=== PATIENT | female | born 1990 | race Caucasian/White ===

== ENCOUNTER 2020-12-18 03:36 | Emergency (ER) | payer SELFPAY ==
[2020-12-18 03:43] VITALS: TEMP 97.8; BMI 24.1
[2020-12-18 06:25] VITALS: BP 121/61; PULSE 85
== END 2020-12-18 06:27 | disposition home or self-care (01) ==
LOC: JER 03:36
DX: S00.83XA Contusion of other part of head, initial encounter (principal)
CPT/HCPCS: 70450-TC; 70486-TC; 72125-TC; 99285-25

== ENCOUNTER 2022-09-13 23:45 | Inpatient (IN) | payer OTHER ==
[2022-09-14] MEDS ORDERED: OXYTOCIN 30 UNITS in 0.9% NS 30 UNIT/500 ML INFUS.BAG IVPB ONE (00:44)
[2022-09-14] MEDS ORDERED: ONDANSETRON 4 MG/2 ML VIAL ONE (00:47)
[2022-09-14] MEDS ORDERED: DEXAMETHASONE SOD PHOSPHATE 4 MG/1 ML VIAL ONE (00:47)
[2022-09-14] MEDS ORDERED: FENTANYL CITRATE/PF 50 MCG/ML VIAL ONE (00:47)
[2022-09-14] MEDS ORDERED: ceFAZolin SODIUM 1 GM VIAL ONE (00:47)
[2022-09-14] MEDS ORDERED: morphine SULFATE/PF 1 MG/2 ML (2cc Syringe - QUVA) ONE (00:47)
[2022-09-14] MEDS ORDERED: ePHEDrine SULFATE 50 MG/1 ML AMPULE ONE (00:48)
[2022-09-14] MEDS ORDERED: SUCCINYLCHOLINE CHLORIDE 200 MG/10 ML SYRINGE ONE (00:48)
[2022-09-14] MEDS ORDERED: PROPOFOL 20 ML ONE (00:48)
[2022-09-14] MEDS ORDERED: AMPICILLIN - 2 GM in SODIUM CHLORIDE 100 ML IVPB ONE (00:49)
[2022-09-14] MEDS: ELECTROLYTE-148 SOLN 1,000 ML IV SCH (01:00)
[2022-09-14] MEDS ORDERED: CITRIC ACID/SODIUM CITRATE 30 ML UNIT-DOSE CUP PO ONE (01:00)
[2022-09-14 01:27] VITALS: BMI 27.4
[2022-09-14] MEDS ORDERED: OXYTOCIN 10 UNITS/ML VIAL ONE ×3 (01:53)
[2022-09-14] MEDS ORDERED: METHYLERGONOVINE MALEATE 0.2 MG/1 ML AMP IM PRN (02:03)
[2022-09-14] MEDS ORDERED: OXYTOCIN 20 UNITS in 0.9% NS 20 UNIT/1,000 ML INFUS.BAG IV SCH (02:15)
[2022-09-14] MEDS ORDERED: ACETAMINOPHEN 325 MG TABLET (FP) PO PRN (02:31)
[2022-09-14] MEDS ORDERED: IBUPROFEN 600 MG TABLET (FP) PO PRN (02:31)
[2022-09-14] MEDS ORDERED: ONDANSETRON 4 MG/2 ML VIAL IVPUSH PRN (02:31)
[2022-09-14] MEDS ORDERED: OXYTOCIN 20 UNITS in 0.9% NS 20 UNIT/1,000 ML INFUS.BAG IV ONE (03:20)
[2022-09-14] MEDS ORDERED: AMPICILLIN - 1 GM in SODIUM CHLORIDE 100 ML IVPB SCH ×2 (05:00→09:45)
[2022-09-14] MEDS: SIMETHICONE 80 MG TAB.CHEW (FP) PO PRN ×2 (06:40→20:10)
[2022-09-14] MEDS: ACETAMINOPHEN 1000 MG/100 ML BAG IVPB SCH ×3 (07:25→20:10)
[2022-09-14] MEDS: IBUPROFEN 800 MG/8 ML IJ IVPB SCH ×2 (09:29→17:08)
[2022-09-14] MEDS ORDERED: oxyCODONE HCL 5 MG TABLET PO PRN (14:03)
[2022-09-15] MEDS: IBUPROFEN 800 MG/8 ML IJ IVPB SCH ×2 (01:06→11:07)
[2022-09-15] MEDS: SIMETHICONE 80 MG TAB.CHEW (FP) PO PRN ×2 (01:08→19:49)
[2022-09-15] MEDS: ACETAMINOPHEN 1000 MG/100 ML BAG IVPB SCH (01:35)
[2022-09-15] MEDS ORDERED: BISACODYL 10 MG SUPP.RECT RC PRN (02:03)
[2022-09-15 07:43] LABS: BASO % 0.3 % (0-2.0); EOS % 0.7 % (0-4.5); HEMATOCRIT 29.8 % (32.4-45.2); MCH 31.8 pg (25.7-33.7); MCHC 33.6 g/dl (32.0-36.0); MEAN CELL VOLUME 94.7 fl (80-96); MEAN PLT VOLUME 9.9 fl (7.5-11.1); PLATELET COUNT 104 10^3/uL (134-434); RBC 3.15 M/mm3 (3.60-5.2); RDW 15.1 % (11.6-15.6); WHITE BLOOD COUNT 9.6 K/mm3 (4.0-10.0)
[2022-09-15] MEDS: ACETAMINOPHEN 500 MG TABLET (FP) PO SCH ×3 (09:24→21:00)
[2022-09-15] MEDS ORDERED: IBUPROFEN 600 MG TABLET (FP) PO PRN (16:00)
[2022-09-15 22:49] VITALS: RESP 18
[2022-09-16] MEDS: ACETAMINOPHEN 500 MG TABLET (FP) PO SCH (03:00)
[2022-09-16] MEDS: ELECTROLYTE-148 SOLN 1,000 ML IV SCH (07:42)
[2022-09-16 08:45] VITALS: BP 109/73; PULSE 79; TEMP 98.2
[2022-09-16] MEDS: SIMETHICONE 80 MG TAB.CHEW (FP) PO PRN (10:02)
== END 2022-09-16 15:00 | disposition home or self-care (01) | DRG 540 ==
LOC: JLDR 23:45 → J3W 09-14 04:25
PROVIDERS: ADMIT Obstetrics & Gynecology; ATTEND Obstetrics & Gynecology
PROC: 10D00Z1 Extraction of Products of Conception, Low, Open Approach (ICD-10-PCS; principal; 2022-09-13)
DX: O42.02 Full-term premature rupture of membranes, onset of labor within 24 hours of rupture (principal); O36.63X0 Maternal care for excessive fetal growth, third trimester, not applicable or unspecified; O99.824 Streptococcus B carrier state complicating childbirth; O77.0 Labor and delivery complicated by meconium in amniotic fluid; Z3A.39 39 weeks gestation of pregnancy; Z37.0 Single live birth
CPT/HCPCS: 36415; 59025; 85025; 86850; 86900; 86901; 88307-TC; C9803-CS; U0003; U0005

== ENCOUNTER 2024-07-29 11:00 | Inpatient (IN) | payer OTHER ==
[2024-07-29 11:56] VITALS: BMI 28.3
[2024-07-29] MEDS: ELECTROLYTE-148 SOLN 1,000 ML IV ONE (12:00)
[2024-07-29] MEDS: CITRIC ACID/SODIUM CITRATE 30 ML UNIT-DOSE CUP PO ONE (12:40)
[2024-07-29] MEDS ORDERED: KETOROLAC TROMETHAMINE 30 MG/1 ML VIAL ONE (12:55)
[2024-07-29] MEDS ORDERED: ONDANSETRON 4 MG/2 ML VIAL ONE (12:55)
[2024-07-29] MEDS ORDERED: morphine SULFATE/PF 1 MG/2 ML (2cc Syringe - QUVA) ONE (12:56)
[2024-07-29] MEDS ORDERED: DEXAMETHASONE SOD PHOSPHATE 4 MG/1 ML VIAL ONE (12:56)
[2024-07-29] MEDS ORDERED: OXYTOCIN 10 UNITS/ML VIAL ONE (12:56)
[2024-07-29] MEDS ORDERED: FENTANYL CITRATE/PF 50 MCG/ML VIAL ONE (12:57)
[2024-07-29] MEDS: ELECTROLYTE-148 SOLN 1,000 ML IV SCH (13:08)
[2024-07-29 13:26] LABS: HIV INTERPRETATION NEGATIVE (NEGATIVE)
[2024-07-29] MEDS ORDERED: PHENYLEPHRINE HCL 10 MG/1 ML SINGLE DOSE VIAL ONE (14:12)
[2024-07-29 14:53] LABS: CORD BASE EXCESS -1.7 mmol/L (0-2); CORD HCO3 24.1 mmHg (20-29); CORD PCO2 44.9 mmHg (30-78); CORD pH 7.348 (7.14-7.44)
[2024-07-29 14:57] LABS: CORD BASE EXCESS -3.2 mmol/L (0-2); CORD HCO3 23.5 mmHg (20-29); CORD pH 7.307 (7.14-7.44)
[2024-07-29] MEDS ORDERED: ceFAZolin SODIUM 1 GM VIAL ONE (15:10)
[2024-07-29] MEDS ORDERED: ACETAMINOPHEN 325 MG TABLET (FP) PO PRN (15:42)
[2024-07-29] MEDS ORDERED: ONDANSETRON 4 MG/2 ML VIAL IVPB PRN (15:42)
[2024-07-29] MEDS: OXYTOCIN 20 UNITS in 0.9% NS 20 UNIT/1,000 ML INFUS.BAG IV SCH (15:45)
[2024-07-29] MEDS: IBUPROFEN 800 MG/8 ML IJ IVPB PRN (17:00)
[2024-07-29] MEDS ORDERED: IBUPROFEN 800 MG/8 ML IJ IVPB ONE (17:06)
[2024-07-29] MEDS: METHYLERGONOVINE MALEATE 0.2 MG TABLET (FP) PO SCH (18:29)
[2024-07-29] MEDS: FERROUS SO4 325 MG TABLET (FP) PO SCH (22:14)
[2024-07-29] MEDS: SENNOSIDES/DOCUSATE COMBO (SENNA PLUS) TABLET (UD) PO SCH (22:14)
[2024-07-29] MEDS: ACETAMINOPHEN 1000 MG/100 ML BAG IVPB PRN (22:23)
[2024-07-30] MEDS: SIMETHICONE 80 MG TAB.CHEW (FP) PO PRN (06:02)
[2024-07-30 08:39] LABS: BASO % 0.1 % (0-2.0); EOS % 0.3 % (0-4.5); HEMATOCRIT 30.9 % (32.4-45.2); HEMOGLOBIN 10.4 GM/dL (10.7-15.3); LYMPH % 10.7 % (8-40); MCH 28.1 pg (25.7-33.7); MCHC 33.6 g/dl (32.0-36.0); MEAN CELL VOLUME 83.6 fl (80-96); MEAN PLT VOLUME 9.6 fl (7.5-11.1); MONO % 8.9 % (3.8-10.2); PLATELET COUNT 142 10^3/uL (134-434); RDW 14.9 % (11.6-15.6); WHITE BLOOD COUNT 11.6 K/mm3 (4.0-10.0)
[2024-07-30] MEDS: PRENATAL VITAMINS W/ FOLIC ACID TABLET (FP) PO SCH (11:03)
[2024-07-30] MEDS: ENOXAPARIN NA (PORCINE) 40 MG/0.4 ML DISP.SYRIN SQ SCH (11:03)
[2024-07-30] MEDS: IBUPROFEN 600 MG TABLET (FP) PO PRN (13:01)
[2024-07-30] MEDS ORDERED: BISACODYL 10 MG SUPP.RECT RC PRN (15:42)
[2024-07-30] MEDS: oxyCODONE HCL 5 MG TABLET PO PRN (20:37)
[2024-07-30 21:13] VITALS: RESP 16
[2024-07-31 10:13] VITALS: BP 116/69; PULSE 77; TEMP 98.4
== END 2024-07-31 17:00 | disposition home or self-care (01) | DRG 540 ==
LOC: JLDR 11:00 → J3W 18:00
PROVIDERS: ADMIT Obstetrics & Gynecology; ATTEND Obstetrics & Gynecology
PROC: 10D00Z1 Extraction of Products of Conception, Low, Open Approach (ICD-10-PCS; principal; 2024-07-29)
PROC: 30233N1 Transfusion of Nonautologous Red Blood Cells into Peripheral Vein, Percutaneous Approach (ICD-10-PCS; 2024-07-29)
DX: O34.211 Maternal care for low transverse scar from previous cesarean delivery (principal); Z3A.39 39 weeks gestation of pregnancy; Z37.0 Single live birth; O99.02 Anemia complicating childbirth; D62 Acute posthemorrhagic anemia
CPT/HCPCS: 36415; 36430; 36600; 59409; 80053; 82803; 85025; 85027; 85610; 85730; 86780; 86803; 86850; 86900; 86901; 86922; 87389; 88307-TC; 94010; J0131; P9058